=== PATIENT | male | born 1980 | race African-American/Black ===

== ENCOUNTER 2017-06-04 23:41 | Emergency (ER) | payer MEDICAID ==
[~2017-06-04] VITALS: Ht 188 cm; Wt 150.3 kg
[2017-06-05 06:58] LABS: BASOPHILS % 0.5 % (0.0-2.0); EOSINOPHILS % 3.8 % (0.0-5.0); HEMATOCRIT. 40.9 % (42.0-52.0); HEMOGLOBIN. 13.9 g/dL (14.0-18.0); LYMPHOCYTES % 41.9 % (20.0-50.0); MEAN CORPUSCULAR HEMOGLOBIN 30.8 pg (28.0-32.0); MEAN CORPUSCULAR VOLUME 90.7 fL (80.0-94.0); MEAN PLATELET VOLUME 7.7 fl (7.4-10.4); MONOCYTES % 10.4 % (2.0-8.0); NEUTROPHILS % 43.4 % (40.0-76.0); PLATELET 282 x1000/uL (130-400); RED BLOOD CELL COUNT 4.51 mill/uL (4.7-6.1); RED CELL DISTRIBUTION WIDTH 13.4 % (11.6-14.6)
[2017-06-05 07:11] VITALS: BP 159/87
[2017-06-05 07:14] LABS: CHLORIDE 103 mEq/L (98-107)
== END 2017-06-05 07:48 | disposition home or self-care (01) ==
LOC: ER 23:41
DX: R07.89 Other chest pain (principal)
CPT/HCPCS: 36415; 71045; 80048; 84484; 85025; 93005; 99285